=== PATIENT | male | born 1970 | race Caucasian/White ===

== ENCOUNTER 2025-10-27 01:51 | Emergency (ER) | payer OTHER ==
[~2025-10-27] VITALS: Ht 165.1 cm; Wt 95.0 kg
[2025-10-27 01:55] VITALS: TEMP 97.5
[2025-10-27 02:18] LABS: PLATELET COUNT (AUTO) 342 K/uL (150-450); RED BLOOD CELL COUNT(AUTO) 4.84 MIL/uL (4.50-5.90); RED CELL DISTRIBUTION WIDTH 13.6 % (11.5-14.5); WHITE BLOOD COUNT (AUTO) 6.9 K/uL (4.5-11.0)
[2025-10-27 02:42] LABS: CALCIUM, TOTAL 9.8 mg/dL (8.8-10.5); CREATININE 1.15 mg/dL (0.60-1.30); GLOMERULAR FILTR. RATE CALC > 60 mL/min (>60); GLUCOSE,RANDOM 122 mg/dL (70-110); SODIUM SERUM 141 mmol/L (136-145); UREA NITROGEN, BLOOD 15 mg/dL (7-18)
[2025-10-27 02:48] LABS: ASPARTATE AMINOTRANSFERASE 32.0 U/L (15-37); TOTAL PROTEIN, SERUM 7.7 g/dL (6.4-8.2)
[2025-10-27 03:10] VITALS: BP 125/85; PULSE 65; RESP 16; O2SAT 99
[2025-10-27] MEDS: PB/HYOSCY/ATR/SCOP/LIDO/MAALOX 55 ML BOTTLE PO ONE (03:29)
[2025-10-27] MEDS ORDERED: FAMO20 PO (04:28)
== END 2025-10-27 05:06 | disposition home or self-care (01) ==
LOC: EMS 01:57
DX: K21.9 Gastro-esophageal reflux disease without esophagitis (principal); D57.1 Sickle-cell disease without crisis
CPT/HCPCS: 80048; 80076; 83690; 85025; 93005; 99284